=== PATIENT | male | born 1980 | race Caucasian/White ===

== ENCOUNTER 2017-07-14 20:16 | Emergency (ER) | payer BC ==
[~2017-07-14] VITALS: Ht 175.3 cm; Wt 85.1 kg
[~2017-07-14 20:16] MED LIST: ADVAIR 250-501 EACH IH; AMOXICILLI400 MG/5 M PO; AUGMENTIN875 MG PO; BUDEPRION SR150 MG PO; CRESTOR10 MG PO; MULTIVITAMIN1 EAC1 PO; NASONEX17 GM BOTH NARES; NEXIUM40 MG PO
[2017-07-14] MEDS ORDERED: ERYTHROMYC1 APPLICAT BOTH EYES (21:43)
[2017-07-14 22:53] VITALS: BP 116/72
== END 2017-07-14 22:53 | disposition home or self-care (01) ==
LOC: EME 20:16
DX: S05.02XA Injury of conjunctiva and corneal abrasion without foreign body, left eye, initial encounter (principal); X58.XXXA Exposure to other specified factors, initial encounter; Y99.0 Civilian activity done for income or pay; Z87.891 Personal history of nicotine dependence
CPT/HCPCS: 99281; 99283